=== PATIENT | female | born 1980 | race African-American/Black ===

== ENCOUNTER 2016-08-03 10:49 | Emergency (ER) | payer MEDICAID ==
[~2016-08-03] VITALS: Ht 165.1 cm; Wt 68.0 kg
[2016-08-03 10:50] VITALS: BP_SYST 136
[2016-08-03] MEDS ORDERED: FAMOTIDINE 20 MG TABLET PO ONE (11:15)
[2016-08-03] MEDS ORDERED: DEXAMETHASONE SOD PHOSPHATE 10 MG/ML VIAL IM ONE (11:15)
[2016-08-03 11:43] VITALS: BP_SYST 136
== END 2016-08-03 11:43 | disposition home or self-care (01) ==
LOC: SED 10:49
DX: L50.9 Urticaria, unspecified (principal); T50.995A Adverse effect of other drugs, medicaments and biological substances, initial encounter; R03.0 Elevated blood-pressure reading, without diagnosis of hypertension; Y92.89 Other specified places as the place of occurrence of the external cause
CPT/HCPCS: 96372; 99283; J1100

== ENCOUNTER 2021-04-28 11:02 | Emergency (ER) | payer MEDICAID, SELFPAY ==
[~2021-04-28] VITALS: Ht 165.1 cm; Wt 58.5 kg
[2021-04-28 11:02] VITALS: BP_SYST 127
--- NOTE | 2021-04-28 11:02 | NUR ---
BROUGHT BACK TO BED #1 AND TRIAGED. REPORT GIVEN TO BERNARDO
--- NOTE | 2021-04-28 11:13 | NUR ---
pt. came in with c/o JEROME to left side of head rates it 10/06, states frequently gets JEROME and has had JEROME X 1 week but here today because not improving and now has pain to right side of neck and can palpate lump, rates that pain 09/06, had lump 2 weeks ago in same location that resolved with no intervention
--- NOTE | 2021-04-28 11:25 | NUR ---
ER at bedside examining patient.
[2021-04-28] MEDS ORDERED: ONDANSETRON 4 MG ODT TAB PO ONE (11:30)
[2021-04-28] MEDS ORDERED: KETOROLAC TROMETHAMINE 60 MG/2 ML VIAL IM ONE (11:30)
[2021-04-28 11:55] LABS: BASOPHILS % (AUTO) 0.7 % (0.0-2.0); EOSINOPHILS # (AUTO) 0.6 K/uL (0.0-0.4); EOSINOPHILS % (AUTO) 10.9 % (0.0-4.0); HEMATOCRIT 43.8 % (36-48); HEMOGLOBIN 14.6 g/dL (12.0-16.0); LYMPHOCYTES # (AUTO) 1.6 K/uL (1.0-5.5); LYMPHOCYTES % (AUTO) 27.1 % (20.5-51.5); MEAN CORPUSCULAR HEMOGLOBIN 31 pg (27-31); MEAN CORPUSCULAR HGB CONC 33 % (32-36); MEAN CORPUSCULAR VOLUME 92 fL (79.0-98.0); MONOCYTES # (AUTO) 0.5 K/uL (0.0-1.0); NEUTROPHILS # (AUTO) 3.2 K/uL (1.8-7.7); NEUTROPHILS % (AUTO) 53.3 % (40.0-70.0); PLATELET COUNT (AUTO) 271 K/uL (130-430); RED BLOOD CELL COUNT(AUTO) 4.77 MIL/uL (4.2-6.2); RED CELL DISTRIBUTION WIDTH 12.7 % (9.0-15.0)
[2021-04-28 12:07] LABS: ANION GAP 8 (5-15); CALCIUM 8.7 mg/dL (8.4-11.0); CHLORIDE 105 mmol/L (98-107); CREATININE 0.57 mg/dL (0.55-1.30); GLUCOSE 96 mg/dL (70-99); POTASSIUM 3.6 mmol/L (3.5-5.1); SODIUM SERUM 141 mmol/L (136-145); UREA NITROGEN, BLOOD 12 mg/dL (8-21)
[2021-04-28 12:12] LABS: GFR AFRICAN AMERICAN 152 mL/min (>90)
[2021-04-28 12:13] LABS: ALANINE AMINOTRANSFERASE 19 U/L (12-78); ALBUMIN 3.4 g/dL (3.4-4.8); ASPARTATE AMINOTRANSFERASE 13 U/L (10-37); TOTAL BILIRUBIN 0.6 mg/dL (0.0-1.0)
[2021-04-28 12:25] LABS: C-REACTIVE PROTEIN QUANT < 0.2 mg/dL (0-0.5)
[2021-04-28] MEDS ORDERED: IBUP-1969 PO (12:44)
[2021-04-28] MEDS ORDERED: HYDR-3917 PO (12:44)
[2021-04-28 12:59] VITALS: BP_SYST 125
--- NOTE | 2021-04-28 13:00 | NUR ---
Patient given written and verbal discharge instructions and verbalizes understanding. ER Dr. Pearson discussed with patient the results and treatment provided. Patient in stable condition. ID arm band removed. Rx of Tionesta and Mptrin given. Patient educated on pain management and to follow up with PMD. Pain Scale 3. Opportunity for questions provided and answered. Medication side effect fact sheet provided.
[2021-04-28 13:23] LABS: ERYTHROCYTE SEDIMENTATION RATE 7 MM/HR (0-20)
== END 2021-04-28 12:59 | disposition home or self-care (01) ==
LOC: SED 11:02
DX: R51.9 Headache, unspecified (principal)
CPT/HCPCS: 36415; 70450; 76376; 80053; 81025; 85025; 85651; 86140; 96372; 99284; J1885; Q0162

== ENCOUNTER 2023-12-30 15:26 | Emergency (ER) | payer MEDICAID ==
[~2023-12-30] VITALS: Ht 175.3 cm; Wt 68.0 kg
[~2023-12-30 15:26] MED LIST: HYDR-3917 PO; IBUP-1969 PO
[2023-12-30 16:00] VITALS: BP_SYST 112; PULSE 100; RESP 17; TEMP 97.7; O2SAT 100
[2023-12-30] MEDS ORDERED: HYDR-3927 PO (18:24)
[2023-12-30 18:56] VITALS: BP_SYST 108; PULSE 76; RESP 20; TEMP 97.1; O2SAT 98
== END 2023-12-30 18:56 | disposition home or self-care (01) ==
LOC: SED 15:26
DX: S93.402A Sprain of unspecified ligament of left ankle, initial encounter (principal); X50.1XXA Overexertion from prolonged static or awkward postures, initial encounter; Y93.89 Activity, other specified; Y92.89 Other specified places as the place of occurrence of the external cause; Y99.8 Other external cause status
CPT/HCPCS: 99283